=== PATIENT | female | born 1945 | race Caucasian/White ===

== ENCOUNTER 2017-09-14 07:46 | Outpatient (CLI) | payer MEDICARE, OTHER | END 2017-09-14 07:47 | disposition home or self-care (01) | LOC: BICMRI 07:46 | PROVIDERS: ATTEND Orthopaedic Surgery | DX: M47.26 Other spondylosis with radiculopathy, lumbar region (principal); G96.19 Other disorders of meninges, not elsewhere classified | CPT/HCPCS: 72148 ==

== ENCOUNTER 2017-10-10 10:35 | Outpatient (CLI) | payer MEDICARE, OTHER ==
--- NOTE | 2017-10-10 12:19 | RAD ---
LUMBAR SPINE THREE VIEWS: History: Spondylolisthesis of the lumbar spine. Comparison: None. FINDINGS: No fracture, malalignment. There is extensive degenerative disc space height loss at L2-3 and L3-4, a nd L4-5. There is anterolisthesis of L5 over S1 in the neutral position approximately 4 mm which does increase with flexion to approximately 8 mm and goes back to 4 mm with extension. There is retrolisthesis of L4 over L5 of approximately 4 mm with neutral position. This decreases wit h flexion and increases to 4 mm with extension. There is narrowing of the intraspinous space between L4-5 and L5-S1. Moderate vascular calcifications . IMPRESSION: Spondylolisthesis as described above which does have translation with flexion and extension at two se parate levels. POS: SALO
== END 2017-10-10 10:36 | disposition home or self-care (01) ==
LOC: RAD 10:35
PROVIDERS: ATTEND Specialist
DX: M43.16 Spondylolisthesis, lumbar region (principal)
CPT/HCPCS: 72100

== ENCOUNTER 2017-10-30 13:59 | Outpatient (CLI) | payer OTHER | END 2017-10-30 14:00 | disposition home or self-care (01) | LOC: DTY/OP 13:59 | PROVIDERS: ATTEND Specialist | DX: E66.9 Obesity, unspecified (principal); Z68.39 Body mass index [BMI] 39.0-39.9, adult | CPT/HCPCS: 97802 ==

== ENCOUNTER 2018-01-29 10:26 | Outpatient (CLI) | payer MEDICARE, OTHER | END 2018-01-29 10:27 | disposition home or self-care (01) | LOC: BICMAMMO 10:26 | PROVIDERS: ATTEND Internal Medicine | DX: Z12.31 Encounter for screening mammogram for malignant neoplasm of breast (principal); Z85.3 Personal history of malignant neoplasm of breast | CPT/HCPCS: 77063; 77067 ==

== ENCOUNTER 2019-01-30 13:55 | Outpatient (CLI) | payer MEDICARE, OTHER ==
--- NOTE | 2019-01-30 14:50 | MMO ---
Bilateral MAMMO Bilat Screen [facility]. CLINICAL HISTORY: Patient is 73 years old and is seen for screening. The patient has the following family history of breast cancer: aunt. The patient has a history of malignant (generic) in the left breast in 2010. The patient has a history of left Lumpectomy in 2011 - malignant. VIEWS: The views performed were: bilateral craniocaudal with tomosynthesis and bilateral mediolateral oblique with tomosynthesis. FILMS COMPARED: The present examination has been compared to prior imaging studies performed at [facility] on 01/29/2018, and at [facility][1] on 11/18/2014, 11/24/2015 and 01/17/2017. This study has been interpreted with the assistance of computer-aided detection. MAMMOGRAM FINDINGS: There are scattered fibroglandular densities. Finding 1: There is an area of architectural distortion with associated post-surgical scar seen in the left breast. Finding 2: There are stable benign appearing calcifications seen in both breasts. There are no suspicious masses, suspicious calcifications, or new areas of architectural distortion. IMPRESSION: THERE IS NO MAMMOGRAPHIC EVIDENCE OF MALIGNANCY. A ROUTINE FOLLOW-UP MAMMOGRAM IN 1 YEAR IS RECOMMENDED. THE RESULTS OF THIS EXAM WERE SENT TO THE PATIENT. ACR BI-RADS Category 2 - Benign finding MAMMOGRAPHY NOTE: 1. A negative mammogram report should not delay a biopsy if a dominant of clinically suspicious mass is present. 2. Approximately 10% to 15% of breast cancers are not detected by mammography. 3. Adenosis and dense breasts may obscure an underlying neoplasm. Reported by: FLAVIO MAST MD Electonically Signed: [id number]
== END 2019-01-30 13:56 | disposition home or self-care (01) ==
LOC: BICMAMMO 13:55
PROVIDERS: ATTEND Internal Medicine
DX: Z12.31 Encounter for screening mammogram for malignant neoplasm of breast (principal); Z80.3 Family history of malignant neoplasm of breast; Z90.12 Acquired absence of left breast and nipple
CPT/HCPCS: 77063; 77067